=== PATIENT | female | born 1990 | race Caucasian/White ===

== ENCOUNTER 2018-01-12 14:49 | Emergency (ER) | payer OTHER, SELFPAY ==
--- NOTE | 2018-01-12 15:40 | RAD ---
FOUR VIEWS RIGHT KNEE: 01/12/18 HISTORY: Right knee pain. Patient has had previous surgery five years ago. AP, lateral, and both oblique views of the right knee is obtained. Images demonstrate an ACL repair of the right knee. Hardware is seen. Osteophytes seen in the lateral compartment. There appears to be some lucency involving the lateral distal femoral condyle. No acute fracture is seen. IMPRESSION: Right knee postsurgical changes. No evidence of acute right knee abnormality seen. POS: DALIA
== END 2018-01-12 18:05 | disposition home or self-care (01) ==
LOC: ERS 14:49
DX: M25.561 Pain in right knee (principal); K58.9 Irritable bowel syndrome, unspecified; F17.210 Nicotine dependence, cigarettes, uncomplicated; G43.909 Migraine, unspecified, not intractable, without status migrainosus
CPT/HCPCS: 99406

== ENCOUNTER 2018-06-25 19:53 | Emergency (ER) | payer OTHER, SELFPAY ==
[~2018-06-25 19:53] MED LIST: ISOVUE-370 76%-LOCM 1 ML ONE
[2018-06-25] MEDS ORDERED: Ketorolac Tromethamine 30 MG/ML VIAL ONE (20:18)
[2018-06-25] MEDS ORDERED: Ondansetron HCl/PF 4 MG/2 ML Vial ONE (20:18)
[2018-06-25 20:24] LABS: Bilirubin Negative (Negative); Blood, Urine Large (Negative); Clarity CLEAR (Clear); Glucose, Urine (Dipstick) Negative (Negative); Leukocyte Trace (Negative); Nitrite Negative (Negative); Protein, Urine (Dipstick) Trace mg/dL (Neg-Trace); Specific Gravity, Urine 1.026 (1.002-1.036); Urobilinogen 0.2 mg/dL (0.2-1.0)
[2018-06-25 20:25] LABS: Bacteria/HPF None Seen HPF (None Seen); Hyaline Casts/LPF 0-3 HYALINE CAST LPF (0-3 Hyaline); Pathc Cast-AUWi Flag 0.58 (0-2.49); RBC/HPF GREATER THAN 50-TNTC HPF (0-3); Squamous Epithelial 0-3 HPF (0-3)
[2018-06-25 20:26] LABS: Pregnancy Test - Urine (BHCG) Negative (Negative); Pregu Control Background? CLEAR/WHITE (CLR/WHITE); Pregu Control Bar Appear? YES (CONTROL BAR); Specific Gravity 1.026 (1.002-1.036)
[2018-06-25 20:38] LABS: #Basophils 0.1 thou/uL (0.0-0.2); #Eosinphils 0.2 thou/uL (0.0-0.7); #Lymphocytes 3.6 thou/uL (1.20-3.40); #Monocytes 0.9 thou/uL (0.11-0.59); #Neutrophils 11.2 thou/uL (1.40-6.50); %Basophils 0.6 % (0.0-1.0); %Eosinophils 1.2 % (0.0-10.0); %Lymphocytes 22.3 % (21.0-51.0); %Monocytes 5.5 % (0.0-10.0); %Neutrophils 70.4 % (42.0-75.0); Hemoglobin 14.7 g/dL (12.0-16.0); Mean Corpuscular HGB CONC 33.5 g/dL (32.0-36.0); Mean Corpuscular Hemoglobin 31.6 pg (27.0-31.0); Mean Corpuscular Volume 94.4 fL (78.0-98.0); Platelet Count 234 thou/uL (130-400); RBC Distribution Width 11.4 % (11.5-14.5); Red Blood Cell (RBC) Count 4.64 mill/uL (4.20-5.40); White Blood Cell (WBC) Count 15.9 thou/uL (4.8-10.8)
[2018-06-25 21:01] LABS: ALT (SGPT) 15 U/L (8-55); AST (SGOT) 12 U/L (5-34); Albumin 4.4 g/dL (3.5-5.0); Alkaline Phosphatase 61 U/L (40-150); Anion Gap 14 mmol/L (10-20); BUN (Urea Nitrogen) 8 mg/dL (7.0-18.7); Bilirubin, Total 0.9 mg/dL (0.2-1.2); Calc. Creatinine Clearance 0 mL/min (70-130); Calcium 9.1 mg/dL (7.8-10.44); Carbon Dioxide 20 mmol/L (22-29); Chloride 109 mmol/L (98-107); Estimated GFR-MDRD Greater than 90; Globulin 2.5 g/dL (2.4-3.5); Glucose 95 mg/dL (70-105); Lipase 11 U/L (8-78); Potassium 3.5 mmol/L (3.5-5.1); Protein, Total 6.9 g/dL (6.0-8.3); Sodium 139 mmol/L (136-145)
--- NOTE | 2018-06-25 22:18 | CT ---
CT ABDOMEN WITH CONTRAST CT PELVIS WITH CONTRAST: DATE: 06/25/18 at 9:14 p.m. HISTORY: 27-year-old female with pelvic pain. COMPARISON: 08/29/08 TECHNIQUE: IV injection of iodinated contrast media: Administered. Oral contrast media: Not administered. FINDINGS: Bilateral kidneys, abdominal aorta, adrenals, pancreas, liver, spleen, and appendix are normal. The u rinary bladder is decompressed. There is a bilobed or trilobed structure at the pelvic inlet of the r ight lower quadrant abdominal cavity, which probably represents an ovary that contains at least two c ysts. The more medial and superior cyst is approximately 2.7 x 2.8 x 3 cm. The one inferior and later al to that is approximately 2 x 2 x 2.5 cm. This is a new finding compared to the previous CT. The le ft ovary is normal in size. No evidence of pneumoperitoneum or ascites. No small bowel dilation. Lung bases are clear. No destructive osseous lesion. IMPRESSION: 1. Right ovarian cysts. 2. No other abnormality identified. TRAN Bertrand POS: JASKARAN
[2018-06-25] MEDS ORDERED: Morphine 4 MG/ML VIAL ONE (22:58)
--- NOTE | 2018-06-25 23:30 | ULT ---
ULTRASOUND PELVIS DOPPLER DUPLEX: 06/25/18 at 11:17 p.m. HISTORY: 27-year-old female with pelvic pain. TECHNIQUE: Transabdominal transducer was used to evaluate intrapelvic contents with hall scale, color flow and s pectral analysis. An endovaginal transducer was not used. FINDINGS: There is limited visualization of fine detail of intrapelvic contents due to body habitus and due to lack of transvaginal ultrasound images. Uterus measures approximately 7.5 x 4 x 5 cm. Endometrial stripe is 0.7 cm (7mm). No large uterine fibroid identified. Right ovary measures approximately 4.5 x 2 cm, and has two cysts. One of the cysts is approximately 2 .5 x 2.5 x 2.5 cm. The other is approximately 2 x 2 x 1.5 cm. Left ovary is approximately 3 x 3 x 4 cm. Blood flow is demonstrated in bilateral ovarian parenchyma by doppler. No free fluid in the cul-de-sac. IMPRESSION: 1. At least two right ovarian cysts. 2. Otherwise negative. POS: JASKARAN
== END 2018-06-26 00:09 | disposition home or self-care (01) ==
LOC: ERS 19:53
DX: N83.201 Unspecified ovarian cyst, right side (principal); K58.9 Irritable bowel syndrome, unspecified; G43.909 Migraine, unspecified, not intractable, without status migrainosus; F17.210 Nicotine dependence, cigarettes, uncomplicated
CPT/HCPCS: 74177; 76856; 80053; 81003; 81015; 81025; 83690; 85025; 96361; 96374; 96375; J1885; J2270; J2405

== ENCOUNTER 2019-02-09 11:07 | Emergency (ER) | payer SELFPAY ==
[2019-02-09] MEDS ORDERED: Ondansetron ODT 4 MG TAB ONE (11:30)
[2019-02-09 12:03] LABS: Band 1 % (5-11); Hemoglobin 16.6 g/dL (12.0-16.0); Lymphocytes 4 % (21-51); MDiff Complete? YES; Mean Corpuscular HGB CONC 33.4 g/dL (32.0-36.0); Mean Corpuscular Hemoglobin 32.4 pg (27.0-31.0); Mean Corpuscular Volume 97.1 fL (78.0-98.0); Mean Platelet Volume 8.3 fL (7.4-10.4); Neutrophil 95 % (42-75); Platelet Count 197 thou/uL (130-400); RBC Distribution Width 11.4 % (11.5-14.5); Red Blood Cell (RBC) Count 5.14 mill/uL (4.20-5.40)
[2019-02-09] MEDS ORDERED: Promethazine HCl 25 MG/ML VIAL ONE (12:08)
[2019-02-09 12:45] LABS: ALT (SGPT) 16 U/L (8-55); AST (SGOT) 14 U/L (5-34); Albumin 4.4 g/dL (3.5-5.0); Alkaline Phosphatase 61 U/L (40-150); Anion Gap 14 mmol/L (10-20); BUN (Urea Nitrogen) 8 mg/dL (7.0-18.7); Bilirubin, Total 0.9 mg/dL (0.2-1.2); Calc. Creatinine Clearance 0 mL/min (70-130); Calcium 9.2 mg/dL (7.8-10.44); Carbon Dioxide 22 mmol/L (22-29); Chloride 107 mmol/L (98-107); Estimated GFR-MDRD Greater than 90; Globulin 2.6 g/dL (2.4-3.5); Glucose 101 mg/dL (70-105); Lipase 20 U/L (8-78); Sodium 139 mmol/L (136-145)
[2019-02-09 13:37] LABS: Bilirubin Negative (Negative); Blood, Urine Negative (Negative); Clarity CLEAR (Clear); Glucose, Urine (Dipstick) Negative (Negative); Leukocyte Negative (Negative); Nitrite Negative (Negative); Protein, Urine (Dipstick) Negative (Neg-Trace); Specific Gravity, Urine 1.021 (1.002-1.036); Urobilinogen 0.2 mg/dL (0.2-1.0)
[2019-02-09 13:38] LABS: Pregnancy Test - Urine (BHCG) Negative (Negative); Pregu Control Background? CLEAR/WHITE (CLR/WHITE); Pregu Control Bar Appear? YES (CONTROL BAR); Specific Gravity 1.021 (1.002-1.036)
== END 2019-02-09 13:51 | disposition home or self-care (01) ==
LOC: ERS 11:07
DX: R11.2 Nausea with vomiting, unspecified (principal); R19.7 Diarrhea, unspecified; R10.9 Unspecified abdominal pain; F17.210 Nicotine dependence, cigarettes, uncomplicated
CPT/HCPCS: 36415; 80053; 81003; 81025; 83690; 85025; 96372; J0500; J2550; Q0162

== ENCOUNTER 2020-03-07 18:00 | Emergency (ER) | payer SELFPAY ==
[2020-03-07] MEDS ORDERED: diphenhydrAMINE 50 MG/ML VIAL ONE (18:15)
[2020-03-07] MEDS ORDERED: Metoclopramide HCl 10 MG/2 ML VIAL ONE (18:15)
[2020-03-07] MEDS ORDERED: Magnesium 2 GM/50 ML BAG (IN WATER) ONE (18:15)
[2020-03-07] MEDS ORDERED: Ketorolac Tromethamine 30 MG/ML VIAL ONE (18:16)
[2020-03-07] MEDS ORDERED: Acetaminophen 500 MG TAB ONE (18:16)
== END 2020-03-07 19:42 | disposition home or self-care (01) ==
LOC: ERS 18:00
DX: G43.909 Migraine, unspecified, not intractable, without status migrainosus (principal); K58.9 Irritable bowel syndrome, unspecified; F17.210 Nicotine dependence, cigarettes, uncomplicated
CPT/HCPCS: 96365; 96368; 96375; J1200; J1885; J2765; J3475

== ENCOUNTER 2020-07-18 01:42 | Emergency (ER) | payer SELFPAY ==
[2020-07-18] MEDS ORDERED: Magnesium 2 GM/50 ML BAG (IN WATER) ONE (02:14)
[2020-07-18] MEDS ORDERED: Metoclopramide HCl 10 MG/2 ML VIAL ONE (02:14)
[2020-07-18] MEDS ORDERED: diphenhydrAMINE 50 MG/ML VIAL ONE (02:14)
== END 2020-07-18 04:00 | disposition home or self-care (01) ==
LOC: ERS 01:42
DX: G43.909 Migraine, unspecified, not intractable, without status migrainosus (principal); F17.210 Nicotine dependence, cigarettes, uncomplicated; K58.9 Irritable bowel syndrome, unspecified
CPT/HCPCS: 96365; 96366; 96368; 96375; J1200; J2765; J3475